=== PATIENT | female | born 1945 | race Caucasian/White ===

== ENCOUNTER 2020-03-17 14:51 | Inpatient (IN) ==
[2020-03-17 16:07] LABS: Basophils # 0.1 10*3/uL (0.0-0.2); Basophils % 0.3 % (0.0-0.8); Hematocrit 40.7 VOL% (35.7-47.0); Hemoglobin 12.4 GM/DL (12.0-16.0); Immature Granulocytes % 0.4 %; Immature Granulocytes Absolute 0.07 #; Lymphocytes # 0.8 10*3/uL (1.4-4.0); Lymphocytes % 4.8 % (21.3-54.2); Mean Corpuscular HGB Conc 30.5 GM/DL (32-36); Mean Corpuscular Volume 88.7 FL (87-102); Mean Platelet Volume 9.9 FL (9.6-12.0); Monocytes % 3.6 % (1.7-12.7); Neutrophils % 90.9 % (38.7-73.9); Platelet Count 281 T/CUMM (130-400); Red Blood Count 4.59 MC/CUMM (3.8-5.5); Red Cell Distribution Width 14.2 % (9.3-17.3); White Blood Count 15.6 T/CUMM (4-12)
[2020-03-17 16:19] LABS: Albumin 3.5 G/DL (3.4-5.0); Bilirubin,Total 0.6 MG/DL (0.2-1.0); Calcium 8.9 MG/DL (8.5-10.1); Osmolality,Calculated 278.1 MOS/KG (273-304); Total Protein 7.7 G/DL (6.4-8.3)
[2020-03-17 16:28] LABS: INR 1.2; Partial Thromboplastin Time 33.3 SECS (23.9-33.8)
[2020-03-17 16:38] LABS: Apearance,Urine CLEAR (Clear); Bacteria,Urine Many /HPF (Few); Bilirubin,Urine Negative (Negative); Blood, Urine Negative (Negative); Glucose,Urine (UA) 50 mg/dL (Negative); Ketones,Urine 5 mg/dL (Negative); Mucus,Urine Occasional /LPF (Occasional); Nitrite,Urine Negative (Negative); Protein,Urine >=500 MG/DL; RBC,Urine 1 /HPF (0-4); Squamous Epithelial Cell,Urine Occasional /HPF (0-10); Urine Color Yellow (Yellow); Urine Specific Gravity 1.014 (1.001-1.035)
[2020-03-17] MEDS ORDERED: ONDANSETRON 4 MG/2 ML VIAL IV ONE (16:42)
[2020-03-17] MEDS ORDERED: MORPHINE 4 MG/1 ML VIAL IV STA (16:42)
[2020-03-17] MEDS ORDERED: hydrALAZINE 20 MG/1 ML VIAL IV STA (16:42)
[2020-03-17 16:51] LABS: Hypochromasia 2+; Lymphocytes 4 % (20-55); Microcytosis Slight; Platelet Estimate Normal; Segmented Neutrophils 93 % (50-85); Total Cells Counted 100
[2020-03-17 16:52] LABS: Ovalocytes Few; Polychromasia Slight
[2020-03-17] MEDS ORDERED: PIPERACILLIN/TAZOBACTAM 3,375 MG in SODIUM CHLORIDE 0.9% 100 ML IV STA (17:55)
[2020-03-17] MEDS ORDERED: GLUCAGON 1 MG VIAL IM PRN (23:02)
[2020-03-17] MEDS ORDERED: DEXTROSE 50% 25 GM/50 ML VIAL IV PRN (23:02)
[2020-03-17] MEDS: DEXTROSE 5% NACL 0.45% 1,000 ML IV SCH (23:58)
[2020-03-18] MEDS: PIPERACILLIN/TAZOBACTAM 3,375 MG in SODIUM CHLORIDE 0.9% 100 ML IV SCH ×3 (00:02→17:06)
[2020-03-18 06:25] LABS: Basophils # 0.1 10*3/uL (0.0-0.2); Basophils % 0.3 % (0.0-0.8); Hematocrit 41.8 VOL% (35.7-47.0); Hemoglobin 12.7 GM/DL (12.0-16.0); Immature Granulocytes % 0.7 %; Immature Granulocytes Absolute 0.15 #; Lymphocytes # 1.6 10*3/uL (1.4-4.0); Lymphocytes % 7.2 % (21.3-54.2); Mean Corpuscular HGB Conc 30.4 GM/DL (32-36); Mean Corpuscular Volume 88.9 FL (87-102); Mean Platelet Volume 10.2 FL (9.6-12.0); Monocytes % 7.3 % (1.7-12.7); Neutrophils % 84.5 % (38.7-73.9); Platelet Count 350 T/CUMM (130-400); Red Cell Distribution Width 14.1 % (9.3-17.3); White Blood Count 22.5 T/CUMM (4-12)
[2020-03-18] MEDS: ONDANSETRON 4 MG/2 ML VIAL IV PRN ×2 (06:37→22:49)
[2020-03-18 06:49] LABS: Osmolality,Calculated 280.2 MOS/KG (273-304)
[2020-03-18 07:11] LABS: Lymphocytes 7 % (20-55); Platelet Estimate Adequate; Segmented Neutrophils 87 % (50-85); Total Cells Counted 100
[2020-03-18 07:12] LABS: Hypochromasia Slight; Microcytosis Slight
[2020-03-18 08:46] LABS: Basophils # 0.1 10*3/uL (0.0-0.2); Basophils % 0.3 % (0.0-0.8); Hematocrit 39.1 VOL% (35.7-47.0); Hemoglobin 12.2 GM/DL (12.0-16.0); Immature Granulocytes % 0.7 %; Immature Granulocytes Absolute 0.15 #; Lymphocytes # 1.1 10*3/uL (1.4-4.0); Lymphocytes % 5.5 % (21.3-54.2); Mean Corpuscular HGB Conc 31.2 GM/DL (32-36); Mean Corpuscular Volume 86.9 FL (87-102); Mean Platelet Volume 10.3 FL (9.6-12.0); Monocytes % 6.9 % (1.7-12.7); Neutrophils % 86.6 % (38.7-73.9); Platelet Count 298 T/CUMM (130-400); Red Cell Distribution Width 14.3 % (9.3-17.3); White Blood Count 20.5 T/CUMM (4-12)
[2020-03-18] MEDS: INSULIN REGULAR 100 UNIT/ML SUBCUT SCH ×4 (08:58→22:08)
[2020-03-18] MEDS: ASCORBIC ACID 500 MG TABLET PO SCH (08:59)
[2020-03-18] MEDS: POTASSIUM CHLORIDE 20 MEQ TABLET PO SCH (08:59)
[2020-03-18] MEDS: CETIRIZINE 10 MG TABLET PO SCH ×3 (08:59→22:05)
[2020-03-18] MEDS: PANTOPRAZOLE 40 MG VIAL IV SCH ×2 (08:59→22:06)
[2020-03-18] MEDS: METOPROLOL SUCCINATE XL 50 MG TABLET PO SCH (08:59)
[2020-03-18] MEDS: metOLazone 2.5 MG TABLET PO SCH (08:59)
[2020-03-18] MEDS ORDERED: NON-FORMULARY MEDICATION (Omeprazole 20 MG) PO SCH (09:00)
[2020-03-18] MEDS: MONTELUKAST 10 MG TABLET PO SCH (09:00)
[2020-03-18] MEDS ORDERED: MAGNESIUM SULF RIDER 4 GM in PREMIX 1 EACH IV ONE (09:00)
[2020-03-18] MEDS ORDERED: ALBUTEROL/IPRATROPIUM 3 ML NEB RESP TX PRN (09:02)
[2020-03-18 09:10] LABS: Band Neutrophils 1 % (0-10); Eosinophils 1 % (0-10); Hypochromasia 1+; Lymphocytes 3 % (20-55); Microcytosis Slight; Platelet Estimate Adequate; Segmented Neutrophils 91 % (50-85); Total Cells Counted 100
[2020-03-18 09:13] LABS: Bilirubin,Total 0.8 MG/DL (0.2-1.0); Calcium 8.8 MG/DL (8.5-10.1); Osmolality,Calculated 275.7 MOS/KG (273-304); Total Protein 7.1 G/DL (6.4-8.3)
[2020-03-18] MEDS ORDERED: PROMETHAZINE INJ 12.5 MG in SODIUM CHLORIDE 0.9% 50 ML IV PRN (10:00)
[2020-03-18] MEDS: MORPHINE 4 MG/1 ML VIAL IV PRN (12:57)
[2020-03-18] MEDS: DEXTROSE 5% NACL 0.45% 1,000 ML IV SCH ×4 (13:00→22:51)
[2020-03-18] MEDS: SIMVASTATIN 40 MG TABLET PO SCH (22:05)
[2020-03-18] MEDS: ESCITALOPRAM 10 MG TABLET PO SCH (22:05)
[2020-03-18] MEDS: INSULIN GLARGINE 100 UNIT/ML SUBCUT SCH (22:08)
[2020-03-19] MEDS: PIPERACILLIN/TAZOBACTAM 3,375 MG in SODIUM CHLORIDE 0.9% 100 ML IV SCH ×3 (00:58→17:18)
[2020-03-19] MEDS: MORPHINE 4 MG/1 ML VIAL IV PRN (01:05)
[2020-03-19] MEDS ORDERED: DIAZEPAM 5 MG TABLET PO ONE (06:00)
[2020-03-19 06:53] LABS: Basophils # 0.1 10*3/uL (0.0-0.2); Basophils % 0.2 % (0.0-0.8); Hematocrit 39.4 VOL% (35.7-47.0); Hemoglobin 12.3 GM/DL (12.0-16.0); Immature Granulocytes % 0.7 %; Immature Granulocytes Absolute 0.18 #; Lymphocytes # 1.3 10*3/uL (1.4-4.0); Lymphocytes % 5.2 % (21.3-54.2); Mean Corpuscular HGB Conc 31.2 GM/DL (32-36); Mean Corpuscular Volume 86.8 FL (87-102); Mean Platelet Volume 10.2 FL (9.6-12.0); Neutrophils % 86.9 % (38.7-73.9); Platelet Count 293 T/CUMM (130-400); Red Blood Count 4.54 MC/CUMM (3.8-5.5); Red Cell Distribution Width 14.2 % (9.3-17.3); White Blood Count 24.4 T/CUMM (4-12)
[2020-03-19 07:14] LABS: Hypochromasia 1+; Lymphocytes 11 % (20-55); Microcytosis Slight; Platelet Estimate Adequate; Segmented Neutrophils 81 % (50-85); Total Cells Counted 100
[2020-03-19 07:29] LABS: Albumin 2.8 G/DL (3.4-5.0); Bilirubin,Total 1.1 MG/DL (0.2-1.0); Osmolality,Calculated 263.9 MOS/KG (273-304); Total Protein 6.8 G/DL (6.4-8.3)
[2020-03-19] MEDS: INSULIN REGULAR 100 UNIT/ML SUBCUT SCH ×4 (08:29→20:47)
[2020-03-19] MEDS: METOPROLOL SUCCINATE XL 50 MG TABLET PO SCH (08:31)
[2020-03-19] MEDS: PANTOPRAZOLE 40 MG VIAL IV SCH ×2 (08:33→20:48)
[2020-03-19] MEDS ORDERED: MORPHINE 4 MG/1 ML VIAL IV PRN ×2 (10:57)
[2020-03-19] MEDS ORDERED: BUPIVACAINE MPF 0.25% 30 ML VIAL ONE (11:29)
[2020-03-19] MEDS ORDERED: TISSUE ADHESIVE 1 EACH APPLICATOR TOP ONE (11:29)
[2020-03-19] MEDS ORDERED: LIDOCAINE 1%/EPI INJ 20 ML VIAL ONE (11:29)
[2020-03-19] MEDS ORDERED: propofoL 200 MG/20 ML VIAL IV ONE (14:08)
[2020-03-19] MEDS ORDERED: SEVOFLURANE 1 UNIT/15 MINUTE INH ONE (14:08)
[2020-03-19] MEDS ORDERED: fentaNYL 100 MCG/2 ML VIAL ONE (14:08)
[2020-03-19] MEDS ORDERED: ePHEDrine 50 MG/ML VIAL ONE (14:08)
[2020-03-19] MEDS ORDERED: LIDOCAINE 2% 5 ML VIAL ONE (14:08)
[2020-03-19] MEDS ORDERED: PHENYLEPHRINE 1 MG/10 ML SYRINGE IV ONE (14:09)
[2020-03-19] MEDS ORDERED: DEXAMETHASONE 4 MG/1 ML VIAL ONE (14:09)
[2020-03-19] MEDS ORDERED: SUCCINYLCHOLINE 200 MG/10 ML VIAL ONE (14:09)
[2020-03-19] MEDS ORDERED: GLYCOPYRROLATE 0.4 MG/2 ML VIAL ONE (14:09)
[2020-03-19] MEDS ORDERED: ONDANSETRON 4 MG/2 ML VIAL ONE (14:09)
[2020-03-19] MEDS ORDERED: KETOROLAC 30 MG/1 ML VIAL ONE (14:09)
[2020-03-19] MEDS ORDERED: NEOSTIGMINE 10 MG/10 ML VIAL ONE (14:10)
[2020-03-19] MEDS ORDERED: SODIUM CHLORIDE 0.9% 1,000 ML IV ONE (14:10)
[2020-03-19] MEDS ORDERED: ROCURONIUM 100 MG/10 ML VIAL IV ONE (14:10)
[2020-03-19] MEDS ORDERED: POTASSIUM CHLORIDE INJ 10 MEQ in SODIUM CHLORIDE 0.9% 1,000 ML IV SCH (15:00)
[2020-03-19] MEDS: metOLazone 2.5 MG TABLET PO SCH (17:05)
[2020-03-19] MEDS: MONTELUKAST 10 MG TABLET PO SCH (17:17)
[2020-03-19] MEDS: ASCORBIC ACID 500 MG TABLET PO SCH (17:17)
[2020-03-19] MEDS: POTASSIUM CHLORIDE 20 MEQ TABLET PO SCH (17:17)
[2020-03-19] MEDS: SIMVASTATIN 40 MG TABLET PO SCH (20:48)
[2020-03-19] MEDS: CETIRIZINE 10 MG TABLET PO SCH (20:48)
[2020-03-19] MEDS: ESCITALOPRAM 10 MG TABLET PO SCH (20:48)
[2020-03-20] MEDS: PIPERACILLIN/TAZOBACTAM 3,375 MG in SODIUM CHLORIDE 0.9% 100 ML IV SCH ×3 (00:57→15:36)
[2020-03-20 05:49] LABS: Basophils % 0.2 % (0.0-0.8); Hematocrit 35.8 VOL% (35.7-47.0); Immature Granulocytes % 1.1 %; Immature Granulocytes Absolute 0.21 #; Lymphocytes # 1.2 10*3/uL (1.4-4.0); Mean Corpuscular HGB Conc 30.7 GM/DL (32-36); Mean Platelet Volume 10.1 FL (9.6-12.0); Monocytes % 6.9 % (1.7-12.7); Neutrophils % 85.8 % (38.7-73.9); Platelet Count 276 T/CUMM (130-400); Red Blood Count 4.07 MC/CUMM (3.8-5.5); Red Cell Distribution Width 14.3 % (9.3-17.3); White Blood Count 19.1 T/CUMM (4-12)
[2020-03-20 06:23] LABS: Albumin 2.2 G/DL (3.4-5.0); Bilirubin,Total 1.2 MG/DL (0.2-1.0); Calcium 8.6 MG/DL (8.5-10.1); Osmolality,Calculated 267.8 MOS/KG (273-304)
[2020-03-20] MEDS ORDERED: DEXTROSE 50% 25 GM/50 ML VIAL IV PRN (07:25)
[2020-03-20] MEDS ORDERED: GLUCAGON 1 MG VIAL IM PRN (07:25)
[2020-03-20] MEDS ORDERED: MAGNESIUM SULF RIDER 2 GM in PREMIX 1 EACH IV ONE (08:13)
[2020-03-20] MEDS: POTASSIUM CHLORIDE 20 MEQ TABLET PO SCH (08:54)
[2020-03-20] MEDS: APIXABAN 5 MG TABLET PO SCH ×2 (08:54→21:10)
[2020-03-20] MEDS: METOPROLOL SUCCINATE XL 50 MG TABLET PO SCH (08:55)
[2020-03-20] MEDS: ASCORBIC ACID 500 MG TABLET PO SCH (08:55)
[2020-03-20] MEDS: INSULIN REGULAR 100 UNIT/ML SUBCUT SCH ×4 (08:55→21:09)
[2020-03-20] MEDS: MONTELUKAST 10 MG TABLET PO SCH (08:55)
[2020-03-20] MEDS: PANTOPRAZOLE 40 MG VIAL IV SCH ×2 (08:59→21:10)
[2020-03-20] MEDS ORDERED: FUROSEMIDE 40 MG/4 ML VIAL IV ONE (11:27)
[2020-03-20] MEDS: metOLazone 2.5 MG TABLET PO SCH (12:31)
[2020-03-20] MEDS: SIMVASTATIN 40 MG TABLET PO SCH (21:10)
[2020-03-20] MEDS: CETIRIZINE 10 MG TABLET PO SCH (21:10)
[2020-03-20] MEDS: ESCITALOPRAM 10 MG TABLET PO SCH (21:10)
[2020-03-20] MEDS: INSULIN GLARGINE 100 UNIT/ML SUBCUT SCH (21:10)
[2020-03-21] MEDS: PIPERACILLIN/TAZOBACTAM 3,375 MG in SODIUM CHLORIDE 0.9% 100 ML IV SCH ×3 (00:09→17:02)
[2020-03-21 06:20] LABS: Basophils % 0.3 % (0.0-0.8); Eosinophils # 0.1 10*3/uL (0.0-0.87); Eosinophils % 0.9 % (0.00-10.9); Hematocrit 37.9 VOL% (35.7-47.0); Hemoglobin 11.5 GM/DL (12.0-16.0); Immature Granulocytes % 0.8 %; Immature Granulocytes Absolute 0.11 #; Lymphocytes # 0.8 10*3/uL (1.4-4.0); Lymphocytes % 5.6 % (21.3-54.2); Mean Corpuscular HGB Conc 30.3 GM/DL (32-36); Mean Corpuscular Volume 88.6 FL (87-102); Mean Platelet Volume 10.4 FL (9.6-12.0); Monocytes % 7.8 % (1.7-12.7); Neutrophils % 84.6 % (38.7-73.9); Platelet Count 288 T/CUMM (130-400); Red Blood Count 4.28 MC/CUMM (3.8-5.5); Red Cell Distribution Width 14.4 % (9.3-17.3)
[2020-03-21 06:46] LABS: Bilirubin,Total 1.7 MG/DL (0.2-1.0); Calcium 8.7 MG/DL (8.5-10.1); Osmolality,Calculated 266.9 MOS/KG (273-304); Total Protein 6.2 G/DL (6.4-8.3)
[2020-03-21 07:20] LABS: Risk Ratio 5.36; VLDL CHOLESTEROL 25.2 MG/DL
[2020-03-21] MEDS: POTASSIUM CHLORIDE INJ 30 MEQ in SODIUM CHLORIDE 0.9% 1,000 ML IV SCH (09:36)
[2020-03-21] MEDS: APIXABAN 5 MG TABLET PO SCH ×2 (09:42→21:57)
[2020-03-21] MEDS: POTASSIUM CHLORIDE 20 MEQ TABLET PO SCH (09:42)
[2020-03-21] MEDS: MONTELUKAST 10 MG TABLET PO SCH (09:43)
[2020-03-21] MEDS: INSULIN REGULAR 100 UNIT/ML SUBCUT SCH ×4 (09:44→20:50)
[2020-03-21] MEDS: metOLazone 2.5 MG TABLET PO SCH (09:44)
[2020-03-21] MEDS: METOPROLOL SUCCINATE XL 50 MG TABLET PO SCH (09:44)
[2020-03-21] MEDS: ASCORBIC ACID 500 MG TABLET PO SCH (09:54)
[2020-03-21] MEDS: PANTOPRAZOLE 40 MG VIAL IV SCH ×2 (09:54→21:54)
[2020-03-21] MEDS: INSULIN GLARGINE 100 UNIT/ML SUBCUT SCH (20:51)
[2020-03-21] MEDS: SIMVASTATIN 40 MG TABLET PO SCH (21:57)
[2020-03-21] MEDS: CETIRIZINE 10 MG TABLET PO SCH (21:57)
[2020-03-21] MEDS: ESCITALOPRAM 10 MG TABLET PO SCH (21:57)
[2020-03-22] MEDS: PIPERACILLIN/TAZOBACTAM 3,375 MG in SODIUM CHLORIDE 0.9% 100 ML IV SCH ×2 (01:02→10:54)
[2020-03-22] MEDS: POTASSIUM CHLORIDE INJ 30 MEQ in SODIUM CHLORIDE 0.9% 1,000 ML IV SCH ×2 (01:03→15:37)
[2020-03-22 06:03] LABS: Basophils % 0.4 % (0.0-0.8); Eosinophils # 0.1 10*3/uL (0.0-0.87); Eosinophils % 1.1 % (0.00-10.9); Hematocrit 35.8 VOL% (35.7-47.0); Hemoglobin 11.1 GM/DL (12.0-16.0); Immature Granulocytes % 0.7 %; Immature Granulocytes Absolute 0.08 #; Lymphocytes # 0.8 10*3/uL (1.4-4.0); Lymphocytes % 7.5 % (21.3-54.2); Mean Corpuscular Volume 85.9 FL (87-102); Mean Platelet Volume 9.8 FL (9.6-12.0); Monocytes % 9.6 % (1.7-12.7); Neutrophils % 80.7 % (38.7-73.9); Platelet Count 288 T/CUMM (130-400); Red Blood Count 4.17 MC/CUMM (3.8-5.5); Red Cell Distribution Width 14.4 % (9.3-17.3); White Blood Count 10.8 T/CUMM (4-12)
[2020-03-22 06:20] LABS: Albumin 1.9 G/DL (3.4-5.0); Bilirubin,Total 1.3 MG/DL (0.2-1.0); Calcium 8.6 MG/DL (8.5-10.1); Osmolality,Calculated 270.8 MOS/KG (273-304); Total Protein 5.9 G/DL (6.4-8.3)
[2020-03-22] MEDS ORDERED: MAGNESIUM SULF RIDER 4 GM in PREMIX 1 EACH IV PRN (07:33)
[2020-03-22] MEDS ORDERED: MAGNESIUM SULF RIDER 2 GM in PREMIX 1 EACH IV PRN (07:33)
[2020-03-22] MEDS: metOLazone 2.5 MG TABLET PO SCH (08:48)
[2020-03-22] MEDS: APIXABAN 5 MG TABLET PO SCH (08:49)
[2020-03-22] MEDS: METOPROLOL SUCCINATE XL 50 MG TABLET PO SCH (08:49)
[2020-03-22] MEDS: ASCORBIC ACID 500 MG TABLET PO SCH (08:49)
[2020-03-22] MEDS: PANTOPRAZOLE 40 MG VIAL IV SCH (08:49)
[2020-03-22] MEDS: POTASSIUM CHLORIDE 20 MEQ TABLET PO SCH (08:49)
[2020-03-22] MEDS: MONTELUKAST 10 MG TABLET PO SCH (08:49)
[2020-03-22] MEDS: INSULIN REGULAR 100 UNIT/ML SUBCUT SCH ×2 (08:50→11:59)
[2020-03-22] MEDS: POTASSIUM CHLORIDE 20 MEQ TABLET PO PRN ×4 (09:59→16:21)
[2020-03-22] MEDS: ONDANSETRON 4 MG/2 ML VIAL IV PRN (13:08)
[2020-03-22 16:32] VITALS: BP 138/71
== END 2020-03-22 17:00 | disposition home or self-care (01) | DRG 418 ==
LOC: N.ED 14:51 → N.EDINP 18:01 → N.3E 21:19
PROVIDERS: ADMIT Surgery; ATTEND Surgery
PROC: LAPCHOL (2020-03-19 12:00)

== ENCOUNTER 2022-04-08 16:50 | Observation (INO) ==
[2022-04-08] MEDS ORDERED: NITROGLYCERIN SL 0.4 MG TABLET SL PRN (17:11)
[2022-04-08] MEDS ORDERED: MORPHINE 2 MG/1 ML SYRINGE IV STA (17:11)
[2022-04-08 17:39] LABS: Basophils # 0.1 10*3/uL (0.0-0.2); Eosinophils # 0.3 10*3/uL (0.0-0.87); Eosinophils % 3.1 % (0.00-10.9); Hematocrit 40.5 VOL% (35.7-47.0); Hemoglobin 12.5 GM/DL (12.0-16.0); Immature Granulocytes % 0.4 %; Immature Granulocytes Absolute 0.04 #; Lymphocytes # 1.9 10*3/uL (1.4-4.0); Lymphocytes % 19.8 % (21.3-54.2); Mean Corpuscular HGB Conc 30.9 GM/DL (32-36); Mean Corpuscular Volume 85.1 FL (87-102); Mean Platelet Volume 9.9 FL (9.6-12.0); Monocytes # 0.6 10*3/uL (0.11-0.8); Monocytes % 6.5 % (1.7-12.7); Neutrophils % 69.2 % (38.7-73.9); Platelet Count 292 T/CUMM (130-400); Red Blood Count 4.76 MC/CUMM (3.8-5.5); Red Cell Distribution Width 15.3 % (9.3-17.3); White Blood Count 9.5 T/CUMM (4-12)
[2022-04-08 17:58] LABS: INR 1.1; PT Patient Result 12.3 SECS (10.5-12.0); Partial Thromboplastin Time 34.1 SECS (23.7-32.9)
[2022-04-08 18:04] LABS: Alanine Aminotransferase 15 U/L (13-56); Albumin 3.6 G/DL (3.4-5.0); Alkaline Phosphatase 103 U/L (45-117); Aspartate Amino Transferase 16 U/L (0-37); Bilirubin,Total < 0.39 MG/DL (0.20-1.00); Blood Urea Nitrogen 20 MG/DL (7-18); Calcium 9.6 MG/DL (8.5-10.1); Carbon Dioxide 30 MMOL/L (21-32); Chloride 102 MMOL/L (98-107); Glucose 83 MG/DL (74-106); Osmolality,Calculated 274.8 MOS/KG (273-304); Potassium 4.1 MMOL/L (3.5-5.1); Sodium 137 MMOL/L (136-145); Total Protein 7.1 G/DL (6.4-8.2)
[2022-04-08] MEDS ORDERED: GLUCAGON 1 MG VIAL IM PRN (19:53)
[2022-04-08] MEDS ORDERED: ONDANSETRON 4 MG/2 ML VIAL IV PRN (20:03)
[2022-04-08] MEDS ORDERED: DEXTROSE 10% 250 ML BAG IV PRN (20:14)
[2022-04-08] MEDS ORDERED: ENOXAPARIN 40 MG/0.4 ML SYRINGE SUBCUT SCH (21:00)
[2022-04-08] MEDS ORDERED: ESCITALOPRAM 10 MG TABLET PO SCH (21:00)
[2022-04-08] MEDS ORDERED: SIMVASTATIN 40 MG TABLET PO SCH (21:00)
[2022-04-08] MEDS: FERROUS SULFATE 325 MG TABLET PO SCH (22:42)
[2022-04-08] MEDS: INSULIN LISPRO 100 UNIT/ML SUBCUT SCH (22:43)
[2022-04-08] MEDS: LACTATED RINGERS 1,000 ML IV SCH (22:52)
[2022-04-09] MEDS: LACTATED RINGERS 1,000 ML IV SCH (04:45)
[2022-04-09] MEDS: INSULIN LISPRO 100 UNIT/ML SUBCUT SCH ×2 (08:20→11:20)
[2022-04-09 08:21] LABS: Basophils # 0.1 10*3/uL (0.0-0.2); Eosinophils # 0.3 10*3/uL (0.0-0.87); Hematocrit 36.9 VOL% (35.7-47.0); Hemoglobin 11.2 GM/DL (12.0-16.0); Immature Granulocytes % 0.3 %; Immature Granulocytes Absolute 0.02 #; Lymphocytes # 1.7 10*3/uL (1.4-4.0); Lymphocytes % 21.7 % (21.3-54.2); Mean Corpuscular HGB Conc 30.4 GM/DL (32-36); Mean Corpuscular Volume 85.2 FL (87-102); Mean Platelet Volume 9.9 FL (9.6-12.0); Monocytes # 0.6 10*3/uL (0.11-0.8); Monocytes % 8.2 % (1.7-12.7); Neutrophils % 64.8 % (38.7-73.9); Platelet Count 227 T/CUMM (130-400); Red Blood Count 4.33 MC/CUMM (3.8-5.5); Red Cell Distribution Width 15.2 % (9.3-17.3); White Blood Count 7.7 T/CUMM (4-12)
[2022-04-09 08:43] VITALS: BP 121/75
[2022-04-09 08:53] LABS: Albumin 3.1 G/DL (3.4-5.0); Bilirubin,Total 0.4 MG/DL (0.20-1.00); Calcium 9.3 MG/DL (8.5-10.1); Osmolality,Calculated 274.7 MOS/KG (273-304); Potassium 3.7 MMOL/L (3.5-5.1); Risk Ratio 2.87; Thyroid Stimulating Hormone 7.62 uIU/ml (0.358-3.74); Total Protein 6.6 G/DL (6.4-8.2)
[2022-04-09] MEDS ORDERED: PANTOPRAZOLE 40 MG TABLET PO SCH (09:00)
[2022-04-09] MEDS ORDERED: amLODIPine 5 MG TABLET PO SCH (09:00)
[2022-04-09] MEDS ORDERED: APIXABAN 5 MG TABLET PO SCH (09:00)
[2022-04-09] MEDS ORDERED: CETIRIZINE 10 MG TABLET PO SCH (09:00)
[2022-04-09] MEDS ORDERED: METOPROLOL SUCCINATE XL 50 MG TABLET PO SCH (09:00)
[2022-04-09] MEDS ORDERED: ASPIRIN EC 81 MG TABLET PO SCH (09:00)
[2022-04-09] MEDS ORDERED: MONTELUKAST 10 MG TABLET PO SCH (09:00)
[2022-04-09] MEDS ORDERED: metOLazone 2.5 MG TABLET PO SCH (09:00)
[2022-04-09] MEDS: FERROUS SULFATE 325 MG TABLET PO SCH (09:20)
[2022-04-09] MEDS ORDERED: INSULIN GLARGINE 100 UNIT/ML SUBCUT SCH (21:00)
== END 2022-04-09 11:54 | disposition home or self-care (01) ==
LOC: N.ED 16:50 → N.EDINP 16:50 → SUATTDRO 19:53 → N.TELEN 04-09 04:04
PROVIDERS: ADMIT Internal Medicine; ATTEND Hospitalist

== ENCOUNTER 2022-05-02 16:27 | Inpatient (IN) ==
[2022-05-02 17:08] LABS: Basophils # 0.1 10*3/uL (0.0-0.2); Basophils % 0.3 % (0.0-0.8); Hematocrit 38.5 VOL% (35.7-47.0); Hemoglobin 11.9 GM/DL (12.0-16.0); Immature Granulocytes Absolute 0.26 #; Lymphocytes # 1.3 10*3/uL (1.4-4.0); Mean Corpuscular HGB Conc 30.9 GM/DL (32-36); Mean Corpuscular Volume 85.2 FL (87-102); Mean Platelet Volume 10.4 FL (9.6-12.0); Monocytes % 3.9 % (1.7-12.7); Neutrophils % 89.8 % (38.7-73.9); Platelet Count 298 T/CUMM (130-400); Red Blood Count 4.52 MC/CUMM (3.8-5.5); Red Cell Distribution Width 15.6 % (9.3-17.3); White Blood Count 25.5 T/CUMM (4-12)
[2022-05-02 17:17] LABS: Bilirubin,Total 3.4 MG/DL (0.20-1.00); Calcium 9.3 MG/DL (8.5-10.1); Osmolality,Calculated 279.2 MOS/KG (273-304); Potassium 4.2 MMOL/L (3.5-5.1); Total Protein 7.1 G/DL (6.4-8.2)
[2022-05-02 17:40] LABS: INR 1.4; PT Patient Result 15.3 SECS (10.5-12.0); Partial Thromboplastin Time 33.6 SECS (23.7-32.9)
[2022-05-02 17:40] LABS: Platelet Estimate Adequate
[2022-05-02] MEDS ORDERED: SODIUM CHLORIDE 0.9% 1,000 ML IV STA (17:41)
[2022-05-02] MEDS ORDERED: ONDANSETRON 4 MG/2 ML VIAL IV STA (17:41)
[2022-05-02] MEDS ORDERED: MORPHINE 2 MG/1 ML SYRINGE IV STA (17:41)
[2022-05-02 20:08] LABS: Hepatitis B Core IgM Quant 0.15 Index; Hepatitis B Surface Ag Quant < 0.10 Index; Hepatitis B Surface Ag Result Non-Reactive (NonReactive); Hepatitis C Virus Ab Quant < 0.02 Index; Hepatitis C Virus Ab Result Non-Reactive (NonReactive)
[2022-05-02] MEDS ORDERED: DEXTROSE 50% 25 GM/50 ML VIAL IV PRN (20:16)
[2022-05-02] MEDS ORDERED: MORPHINE 2 MG/1 ML SYRINGE IV PRN (20:16)
[2022-05-02] MEDS ORDERED: GLUCAGON 1 MG VIAL IM PRN ×2 (20:16→20:26)
[2022-05-02] MEDS ORDERED: DEXTROSE 10% 250 ML BAG IV PRN (20:34)
[2022-05-02] MEDS ORDERED: PIPERACILLIN/TAZOBACTAM 3.375 MG in SODIUM CHLORIDE 0.9% 100 ML IV SCH (21:00)
[2022-05-02] MEDS ORDERED: VANCOMYCIN INJ 1,500 MG in SODIUM CHLORIDE 0.9% 500 ML IV SCH (21:00)
[2022-05-02] MEDS: SODIUM CHLORIDE 0.9% 1,000 ML IV SCH (21:39)
[2022-05-02] MEDS: TICAGRELOR 90 MG TABLET PO SCH (21:59)
[2022-05-02] MEDS: APIXABAN 5 MG TABLET PO SCH (21:59)
[2022-05-02] MEDS: INSULIN LISPRO 100 UNIT/ML SUBCUT SCH (21:59)
[2022-05-02] MEDS: ESCITALOPRAM 10 MG TABLET PO SCH (22:01)
[2022-05-02] MEDS: PANTOPRAZOLE 40 MG TABLET PO SCH (22:01)
[2022-05-03] MEDS: INSULIN LISPRO 100 UNIT/ML SUBCUT SCH ×6 (00:41→20:19)
[2022-05-03 02:00] LABS: Basophils # 0.1 10*3/uL (0.0-0.2); Basophils % 0.3 % (0.0-0.8); Eosinophils # 0.2 10*3/uL (0.0-0.87); Hematocrit 33.6 VOL% (35.7-47.0); Hemoglobin 10.7 GM/DL (12.0-16.0); Immature Granulocytes % 0.6 %; Lymphocytes % 6.4 % (21.3-54.2); Mean Corpuscular HGB Conc 31.8 GM/DL (32-36); Mean Corpuscular Volume 84.2 FL (87-102); Mean Platelet Volume 10.5 FL (9.6-12.0); Monocytes # 0.7 10*3/uL (0.11-0.8); Monocytes % 4.3 % (1.7-12.7); Neutrophils % 87.4 % (38.7-73.9); Platelet Count 252 T/CUMM (130-400); Red Blood Count 3.99 MC/CUMM (3.8-5.5); Red Cell Distribution Width 15.6 % (9.3-17.3); White Blood Count 16.4 T/CUMM (4-12)
[2022-05-03 02:34] LABS: Albumin 2.7 G/DL (3.4-5.0); Bilirubin,Direct 2.37 MG/DL (0.0-0.20); Bilirubin,Indirect 0.6 MG/DL (0.0-1.0); Calcium 8.9 MG/DL (8.5-10.1); Osmolality,Calculated 281.8 MOS/KG (273-304); Risk Ratio 4.46; Thyroid Stimulating Hormone 3.19 uIU/ml (0.358-3.74); Total Protein 6.4 G/DL (6.4-8.2); VLDL Cholesterol 26.2 MG/DL
[2022-05-03] MEDS: SODIUM CHLORIDE 0.9% 1,000 ML IV SCH (06:23)
[2022-05-03] MEDS ORDERED: MAGNESIUM SULF RIDER 4 GM/100 ML PREMIX IV ONE (07:08)
[2022-05-03] MEDS: TICAGRELOR 90 MG TABLET PO SCH ×2 (08:23→20:18)
[2022-05-03] MEDS: ASPIRIN EC 81 MG TABLET PO SCH (08:23)
[2022-05-03] MEDS: PANTOPRAZOLE 40 MG TABLET PO SCH ×2 (08:23→20:19)
[2022-05-03] MEDS: METOPROLOL SUCCINATE XL 50 MG TABLET PO SCH (08:23)
[2022-05-03] MEDS: PIPERACILLIN/TAZOBACTAM 3,375 MG in SODIUM CHLORIDE 0.9% 100 ML IV SCH ×2 (11:09→18:11)
[2022-05-03] MEDS: ESCITALOPRAM 10 MG TABLET PO SCH (20:18)
[2022-05-03] MEDS: APIXABAN 5 MG TABLET PO SCH (20:19)
[2022-05-03] MEDS: ursodioL 300 MG CAPSULE PO SCH (20:19)
[2022-05-04] MEDS: SODIUM CHLORIDE 0.9% 1,000 ML IV SCH ×4 (01:25→12:14)
[2022-05-04] MEDS: PIPERACILLIN/TAZOBACTAM 3,375 MG in SODIUM CHLORIDE 0.9% 100 ML IV SCH ×3 (02:22→18:07)
[2022-05-04 06:44] LABS: Basophils # 0.1 10*3/uL (0.0-0.2); Basophils % 0.6 % (0.0-0.8); Eosinophils # 0.3 10*3/uL (0.0-0.87); Eosinophils % 2.5 % (0.00-10.9); Hemoglobin 10.3 GM/DL (12.0-16.0); Immature Granulocytes % 0.4 %; Immature Granulocytes Absolute 0.04 #; Lymphocytes # 1.2 10*3/uL (1.4-4.0); Lymphocytes % 11.3 % (21.3-54.2); Mean Corpuscular HGB Conc 31.2 GM/DL (32-36); Mean Corpuscular Volume 84.2 FL (87-102); Mean Platelet Volume 10.4 FL (9.6-12.0); Monocytes # 0.7 10*3/uL (0.11-0.8); Monocytes % 6.5 % (1.7-12.7); Neutrophils % 78.7 % (38.7-73.9); Platelet Count 252 T/CUMM (130-400); Red Blood Count 3.92 MC/CUMM (3.8-5.5); Red Cell Distribution Width 15.7 % (9.3-17.3); White Blood Count 10.8 T/CUMM (4-12)
[2022-05-04 07:09] LABS: Albumin 2.4 G/DL (3.4-5.0); Bilirubin,Total 1.5 MG/DL (0.20-1.00); Calcium 8.7 MG/DL (8.5-10.1); Osmolality,Calculated 278.5 MOS/KG (273-304); Potassium 3.4 MMOL/L (3.5-5.1); Total Protein 6.1 G/DL (6.4-8.2)
[2022-05-04] MEDS: INSULIN LISPRO 100 UNIT/ML SUBCUT SCH ×4 (07:30→20:37)
[2022-05-04] MEDS: METOPROLOL SUCCINATE XL 50 MG TABLET PO SCH (08:29)
[2022-05-04] MEDS: PANTOPRAZOLE 40 MG TABLET PO SCH ×2 (08:29→21:05)
[2022-05-04] MEDS: APIXABAN 5 MG TABLET PO SCH ×2 (08:29→21:05)
[2022-05-04] MEDS: TICAGRELOR 90 MG TABLET PO SCH ×2 (08:30→21:05)
[2022-05-04] MEDS: ursodioL 300 MG CAPSULE PO SCH ×2 (08:30→21:05)
[2022-05-04] MEDS: ASPIRIN EC 81 MG TABLET PO SCH (08:30)
[2022-05-04] MEDS ORDERED: POTASSIUM CHLORIDE 20 MEQ TABLET PO ONE (10:22)
[2022-05-04] MEDS: ESCITALOPRAM 10 MG TABLET PO SCH (21:05)
[2022-05-05] MEDS: SODIUM CHLORIDE 0.9% 1,000 ML IV SCH ×2 (02:00→08:00)
[2022-05-05] MEDS: PIPERACILLIN/TAZOBACTAM 3,375 MG in SODIUM CHLORIDE 0.9% 100 ML IV SCH (03:06)
[2022-05-05 05:39] LABS: Basophils # 0.1 10*3/uL (0.0-0.2); Basophils % 0.8 % (0.0-0.8); Eosinophils # 0.2 10*3/uL (0.0-0.87); Eosinophils % 2.5 % (0.00-10.9); Hematocrit 33.9 VOL% (35.7-47.0); Hemoglobin 10.6 GM/DL (12.0-16.0); Immature Granulocytes % 0.8 %; Immature Granulocytes Absolute 0.07 #; Lymphocytes # 0.9 10*3/uL (1.4-4.0); Mean Corpuscular HGB Conc 31.3 GM/DL (32-36); Mean Corpuscular Volume 84.8 FL (87-102); Mean Platelet Volume 10.3 FL (9.6-12.0); Monocytes # 0.6 10*3/uL (0.11-0.8); Monocytes % 7.1 % (1.7-12.7); Neutrophils % 77.8 % (38.7-73.9); Platelet Count 254 T/CUMM (130-400); Red Cell Distribution Width 15.6 % (9.3-17.3); White Blood Count 8.3 T/CUMM (4-12)
[2022-05-05 06:03] LABS: Albumin 2.3 G/DL (3.4-5.0); Bilirubin,Total 1.2 MG/DL (0.20-1.00); Osmolality,Calculated 276.7 MOS/KG (273-304); Potassium 3.5 MMOL/L (3.5-5.1); Total Protein 6.2 G/DL (6.4-8.2)
[2022-05-05] MEDS: INSULIN LISPRO 100 UNIT/ML SUBCUT SCH (08:06)
[2022-05-05 08:15] VITALS: BP 135/49
[2022-05-05] MEDS: ASPIRIN EC 81 MG TABLET PO SCH (08:33)
[2022-05-05] MEDS: PANTOPRAZOLE 40 MG TABLET PO SCH (08:33)
[2022-05-05] MEDS: METOPROLOL SUCCINATE XL 50 MG TABLET PO SCH (08:33)
[2022-05-05] MEDS: TICAGRELOR 90 MG TABLET PO SCH (08:33)
[2022-05-05] MEDS: APIXABAN 5 MG TABLET PO SCH (08:33)
[2022-05-05] MEDS: ursodioL 300 MG CAPSULE PO SCH (08:33)
[2022-05-05] MEDS ORDERED: CLOPIDOGREL 75 MG TABLET PO SCH (09:00)
[2022-05-05 14:08] LABS: Mitochondrial Antibody (M2) <0.1 U
[2022-05-05 14:41] LABS: Smooth Muscle Antibody Negative (Negative)
[2022-05-07 13:11] LABS: Antinuclear Ab, S 0.4 U
== END 2022-05-05 10:41 | disposition home or self-care (01) | DRG 445 ==
LOC: N.ED 16:27 → SUATTDRO 20:16 → N.EDINP 20:16 → N.TELES 23:10
PROVIDERS: ADMIT Internal Medicine; ATTEND Internal Medicine